=== PATIENT | male | born 1975 | race Caucasian/White ===

== ENCOUNTER 2025-03-12 14:35 | Emergency (ER) | payer OTHER, SELFPAY ==
[2025-03-12] VITALS (14 sets, daily range): BP systolic 163–188; BP diastolic 99–124; PULSE 83; RESP 14; TEMP 36.6; O2SAT 96–100
--- NOTE | ~2025-03-12 | XR_ITS ---
EXAMINATION: XR chest 2V, 03/12/2025 15:00 CDT HISTORY: chest pain COMPARISON: No comparisons available. Technique: 2 views obtained. Findings: The lungs are clear, no effusion. No pneumothorax. Heart is normal size. Mediastinal and hilar contours are within normal limits. Bony thorax no acute abnormality. Impression: No acute cardiopulmonary abnormality. Reviewed, dictated and finalized at location P. Impression: No acute cardiopulmonary abnormality.
--- NOTE | ~2025-03-12 | CT_ITS ---
CTA CHEST CLINICAL HISTORY: d dimer, CP . COMPARISON: Chest x-ray today TECHNIQUE: Helical CTA performed from thoracic inlet to upper abdomen IV contrast information not listed in PACS Coronal, sagittal reformats. Multiplanar MIPS CT images acquired with automatic exposure control for dose reduction DLP: 636 mGy-cm FINDINGS: Pulmonary arteries: No PE. Thoracic Aorta: No dissection or aneurysm. Heart/pericardium: Unremarkable. RV/LV ratio: Normal. Lungs/Pleura: Clear. Tracheobronchial tree: Patent. Nodes: No enlarged nodes. Small mediastinal and left hilar nodes Bones: No acute bony abnormality. Soft tissues: Unremarkable. Visualized upper abdomen: Unremarkable. IMPRESSION: 1. No PE or other acute cardiopulmonary findings. Reviewed, dictated and finalized at location R.
--- NOTE | 2025-03-12 14:40 | ECG_ITS ---
Test Date: 2025-03-12 14:45:04 Measurements Intervals [place] Rate: 74 P: 20 [place]: 152 QRS: 7 QRSD: 76 T: 35 QT: 383 QTc: 426 Interpretive Statements SINUS RHYTHM POSSIBLE LEFT ATRIAL ENLARGEMENT BASELINE ARTIFACT- I, II, III, AVR, AVL, AVF, V1-V6 BORDERLINE ECG No previous ECG available for comparison Electronically Signed On 03-12-2025 15:02:42 CDT by Johnson Valdivia D.O.
[2025-03-12 15:02] LABS: Hematocrit 49.6 % (42.0-52.0); Hemoglobin 17.6 g/dL (14.0-18.0); Immature Granulocyte Percent A 0.3 % (0-0.5); Lymphocytes Absolute Auto 1.49 K/mm3 (0.9-3.2); Mean Corpuscular HGB Conc 35.5 g/dl (32-36); Mean Corpuscular Hemoglobin 31.8 pg (26-34); Mean Corpuscular Volume 89.5 fl (80-100); Nucleated Red Blood Cells Absolute Auto 0.000 K/mm3 (0.0-0.012); Nucleated Red Blood Cells Perc 0.0 % (0.0-0.2); Platelet Count Result 244 k/mm3 (150-375); Red Blood Count 5.54 M/mm3 (4.6-6.20); White Blood Count 7.0 K/mm3 (4.5-10.0)
[2025-03-12 15:12] LABS: Alanine Aminotransferase 43 U/L (6-50); Albumin Level 4.9 g/dL (3.5-5.1); Alkaline Phosphatase 129 U/L (38-126); Anion Gap 11 mmol/L (4-12); Aspartate Amino Transferase 51 U/L (17-59); Bilirubin,Total 2.6 mg/dL (0.2-1.3); Blood Urea Nitrogen 10 mg/dL (9-20); Calcium 9.6 mg/dL (8.4-10.2); Carbon Dioxide 23 mmol/L (22-30); Chloride 103 mmol/L (98-107); Estimated Glomerular Filt Rate 52; Glucose 115 mg/dL (65-110); Lipase 47 U/L (23-300); Potassium 4.1 mmol/L (3.4-5.0); Sodium 137 mmol/L (137-145); Total Protein 8.5 g/dL (6.3-8.2)
[2025-03-12 15:15] LABS: INR 1.0; Prothrombin Time 13.4 Seconds (11.1-14.7)
[2025-03-12 15:16] LABS: Partial Thromboplastin Time 31.7 Seconds (22.3-36.8)
[2025-03-12 15:24] LABS: Troponin I < 0.012 ng/mL (0.000-0.034)
--- NOTE | 2025-03-12 17:51 | ECG_ITS ---
Test Date: 2025-03-12 17:50:19 Measurements Intervals [place] Rate: 60 P: 20 [place]: 161 QRS: 53 QRSD: 85 T: -3 QT: 420 QTc: 420 Interpretive Statements SINUS RHYTHM NONSPECIFIC ST-T WAVE ABNORMALITY- INFERIOR LEADS BASELINE ARTIFACT- I, II, AVR BORDERLINE ECG Compared to ECG 03/12/2025 14:45:04 NO SIGNIFICANT CHANGE Electronically Signed On 03-13-2025 07:51:38 CDT by Johnson Valdivia D.O.
[2025-03-12 18:17] LABS: Troponin I < 0.012 ng/mL (0.000-0.034)
--- NOTE | 2025-03-12 18:56 | ED.GENADULT ---
HPI - General Adult General Chief complaint: Chest Pain <Kevin Tucker MD - Last Filed: 03/13/25 18:00> Stated complaint: chest pain <Kevin Tucker MD - Last Filed: 03/13/25 18:00> Time Seen by Provider: 03/12/25 16:38 <Kevin Tucker MD - Last Filed: 03/13/25 18:00> History of Present Illness HPI narrative: 49-year-old male presents to the emergency department for evaluation for episode of diaphoresis and chest pain started today. Approximately noon patient had onset of chest pressure and nausea vomiting. Patient was recently diagnosed with hypertension and was started on nifedipine last week but patient has not yet started taking this medication. She denies any prior cardiac history. Patient does have a recent negative stress test and echocardiogram. At time of evaluation patient denies any current chest pain but does have some elevated blood pressure. <Kevin Tucker MD - Last Filed: 03/13/25 18:00> Related Data Allergies/adverse reactions: Allergies Allergy/AdvReac Type Severity Reaction Status Date / Time No Known Allergies Allergy Verified 03/12/25 17:33 <Kevin Tucker MD - Last Filed: 03/13/25 18:00> Review of Systems Review of Systems: All systems reviewed & are unremarkable except as noted in HPI and below <Kevin Tucker MD - Last Filed: 03/13/25 18:00> Exam Narrative: APPEARANCE: Well appearing, no pain, no distress, well-nourished. HEAD: normocephalic, atraumatic. EYES: PERRLA/EOMI, conjunctivae clear. NOSE: Normal no drainage EARS:TMS clear with good light reflex. THROAT: Pharynx clear, no exudate. NECK: Supple. No adenopathy, no masses. RESPIRATORY: Airway patent, respirations nonlabored. Clear to auscultation bilaterally, no rales, rhonchi, wheezing. CARDIOVASCULAR: Regular rate and rhythm without murmurs rubs or gallops. ABDOMINAL: Soft, nontender, nondistended, normal bowel sounds MUSCULOSKELETAL: Moves all extremities. Strength/ROM intact, No edema, No calf tenderness. NEURO: Alert. Cranial nerves II through XII intact. Good gait. Good coordination SKIN: Warm, dry. Normal Color <Kevin Tucker MD - Last Filed: 10/09/25 18:00> Course Vital Signs Vital signs: Vital Signs Pulse Oximetry 99 03/12/25 16:54 Temperature 97.8 F 03/12/25 20:26 Pulse Rate 83 03/12/25 20:26 Respiratory Rate 14 03/12/25 20:26 Blood Pressure 163/100 H 03/12/25 20:26 Pulse Oximetry 96 03/12/25 20:26 <Kevin Tucker MD - Last Filed: 03/13/25 18:00> Vital Signs Pulse Oximetry 99 03/12/25 16:54 Temperature 97.8 F 03/12/25 20:26 Pulse Rate 83 03/12/25 20:26 Respiratory Rate 14 03/12/25 20: Blood Pressure 163/100 H 03/12/25 20:26 Pulse Oximetry 96 03/12/25 20:26 <Enid Rainey MD - Last Filed: 03/12/25 21:18> Medical Decision Making MDM Narrative Medical decision making narrative: 49-year-old male presents emergency department for evaluation for elevated blood pressure and chest pressure earlier today with associated nausea and vomiting. At time of evaluation patient reports his symptoms have improved although patient does still have hypertension. Patient is currently afebrile no leukocytosis hemoglobin of 17.6. Patient's INR is 1.0. Patient does have an elevated D-dimer 0.54 and at time of sign-out CTA is pending. Patient's initial troponin was negative. Delta troponin is pending at time of sign-out. Chest x-ray shows no acute cardiopulmonary abnormality. EKG shows normal sinus rhythm with possible left atrial enlargement. No evidence of acute infarction. <Kevin Tucker MD - Last Filed: 03/13/25 18:00> 49-year-old male presents emergency department for evaluation for elevated blood pressure and chest pressure earlier today with associated nausea and vomiting. At time of evaluation patient reports his symptoms have improved although patient does still have hypertension. Patient is currently afebrile no leukocytosis hemoglobin of 17.6. Patient's INR is 1.0. Patient does have an elevated D-dimer 0.54 and at time of sign-out CTA is pending. Patient's initial troponin was negative. Delta troponin is pending at time of sign-out. Chest x-ray shows no acute cardiopulmonary abnormality. EKG shows normal sinus rhythm with possible left atrial enlargement. No evidence of acute infarction. [Brigid] Patient signed out to me at 7:00 p.m Pending a repeat troponin and CTA. Repeat troponin within normal limits CTA also normal. Patient is reassessed at 8:15 p.m.. 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 He believes that when his stomach hurts due to this he gets some radiating pain into his chest. He notes that this sometimes happens when he drinks alcohol and he admits that he had been drinking alcohol last night. Thinks it might be gastritis. Will give patient famotidine, Protonix, cholestyramine, and a GI cocktail and reassess. upon reassessment patient for states that he is feeling better but then states that he feels weird. 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 His last EGD occurred in August with a air conditioning mechanic closer to where he resides. Similarly, he notes that in the past year he had been worked up for chest pain with a stress test and an echo which he reports were negative. He notes that he is still intermittently having some epigastric abdominal pain. Bentyl ordered and patient has not yet received the cholestyramine that had been ordered earlier. His blood pressure has improved with systolic blood pressure in the 140s on my examination in the room. Patient would like to be discharged At this time per the nurse. he is stable. <Enid Rainey MD - Last Filed: 03/12/25 21:18> Vital Signs Vital Signs: Vital Signs Pulse Oximetry 99 03/12/25 16:54 Temperature 97.8 F 03/12/25 20:26 Pulse Rate 83 03/12/25 20:26 Respiratory Rate 14 03/12/25 20:26 Blood Pressure 163/100 H 03/12/25 20:26 Pulse Oximetry 96 03/12/25 20:26 <Kevin Tucker MD - Last Filed: 03/13/25 18:00> Vital Signs Pulse Oximetry 99 03/12/25 16:54 Temperature 97.8 F 03/12/25 20:26 Pulse Rate 83 03/12/25 20:26 Respiratory Rate 14 03/12/25 20:26 Blood Pressure 163/100 H 03/12/25 20:26 Pulse Oximetry 96 03/12/25 20:26 <Enid Rainey MD - Last Filed: 03/12/25 21:18> Lab Data Result diagrams: 03/12/25 14:51 03/12/25 14:51 <Kevin Tucker MD - Last Filed: 03/13/25 18:00> Labs: Lab Results 03/12/25 03/12/25 03/12/25 Range/Units 14:49 14:51 17:47 WBC 7.0 (4.5-10.0) K/mm3 RBC 5.54 (4.6-6.20) M/mm3 Hgb 17.6 (14.0-18.0) g/dL Hct 49.6 (42.0-52.0) % MCV 89.5 (80-100) fl MCH 31.8 (26-34) pg MCHC 35.5 (32-36) g/dl RDW 12.6 (11.5-14.5) % Plt Count 244 (150-375) k/mm3 MPV 10.5 H (7.4-10.4) fl Immature Gran % (Auto) 0.3 (0-0.5) % Neut % (Auto) 69.4 (45.5-73.1) % Lymph % (Auto) 21.3 (18.3-44.2) % [place] % (Auto) 7.4 (2.6-8.5) % Eos % (Auto) 0.9 (0-4.4) % Baso % (Auto) 0.7 (0.2-1.2) % Lymph # (Auto) 1.49 (0.9-3.2) K/mm3 [place] # (Auto) 0.5 (0.1-0.6) K/mm3 Eos # (Auto) 0.1 (0-0.3) K/mm3 Baso # (Auto) 0.1 (0.0-0.1) K/mm3 Abs Immat Gran (auto) 0.02 (0.00-0.031) K/mm3 Absolute Neuts (auto) 4.9 (1.3-6.7) K/mm3 Absolute Nucleated RBC 0.000 (0.0-0.012) K/mm3 Nucleated RBC % 0.0 (0.0-0.2) % PT 13.4 (11.1-14.7) Seconds INR 1.0 APTT 31.7 (22.3-36.8) Seconds D-Dimer 0.54 H (<0.48) ug/mL Sodium 137 (137-145) mmol/L Potassium 4.1 (3.4-5.0) mmol/L Chloride 103 (98-107) mmol/L Carbon Dioxide 23 (22-30) mmol/L Anion Gap 11 (4-12) mmol/L BUN 10 (9-20) mg/dL Creatinine 1.45 H (0.7-1.3) mg/dL Estim Creat Clear Calc Not Reportable Estimated GFR 52 L (59 - ) Glucose 115 H (65-110) mg/dL Calcium 9.6 (8.4-10.2) mg/dL Total Bilirubin 2.6 H (0.2-1.3) mg/dL AST 51 (17-59) U/L ALT 43 (6-50) U/L Alkaline Phosphatase 129 H (38-126) U/L Troponin I < 0.012 < 0.012 (0.000-0.034) ng/mL Total Protein 8.5 H (6.3-8.2) g/dL Albumin 4.9 (3.5-5.1) g/dL Lipase 47 (23-300) U/L <Kevin Tucker MD - Last Filed: 03/13/25 18:00> Lab Results 03/12/25 03/12/25 03/12/25 Range/Units 14:49 14:51 17:47 WBC 7.0 (4.5-10.0) K/mm3 RBC 5.54 (4.6-6.20) M/mm3 Hgb 17.6 (14.0-18.0) g/dL Hct 49.6 (42.0-52.0) % MCV 89.5 (80-100) fl MCH 31.8 (26-34) pg MCHC 35.5 (32-36) g/dl RDW 12.6 (11.5-14.5) % Plt Count 244 (150-375) k/mm3 MPV 10.5 H (7.4-10.4) fl Immature Gran % (Auto) 0.3 (0-0.5) % Neut % (Auto) 69.4 (45.5-73.1) % Lymph % (Auto) 21.3 (18.3-44.2) % [place] % (Auto) 7.4 (2.6-8.5) % Eos % (Auto) 0.9 (0-4.4) % Baso % (Auto) 0.7 (0.2-1.2) % Lymph # (Auto) 1.49 (0.9-3.2) K/mm3 [place] # (Auto) 0.5 (0.1-0.6) K/mm3 Eos # (Auto) 0.1 (0-0.3) K/mm3 Baso # (Auto) 0.1 (0.0-0.1) K/mm3 Abs Immat Gran (auto) 0.02 (0.00-0.031) K/mm3 Absolute Neuts (auto) 4.9 (1.3-6.7) K/mm3 Absolute Nucleated RBC 0.000 (0.0-0.012) K/mm3 Nucleated RBC % 0.0 (0.0-0.2) % PT 13.4 (11.1-14.7) Seconds INR 1.0 APTT 31.7 (22.3-36.8) Seconds D-Dimer 0.54 H (<0.48) ug/mL Sodium 137 (137-145) mmol/L Potassium 4.1 (3.4-5.0) mmol/L Chloride 103 (98-107) mmol/L Carbon Dioxide 23 (22-30) mmol/L Anion Gap 11 (4-12) mmol/L BUN 10 (9-20) mg/dL Creatinine 1.45 H (0.7-1.3) mg/dL Estim Creat Clear Calc Not Reportable Estimated GFR 52 L (59 - ) Glucose 115 H (65-110) mg/dL Calcium 9.6 (8.4-10.2) mg/dL Total Bilirubin 2.6 H (0.2-1.3) mg/dL AST 51 (17-59) U/L ALT 43 (6-50) U/L Alkaline Phosphatase 129 H (38-126) U/L Troponin I < 0.012 < 0.012 (0.000-0.034) ng/mL Total Protein 8.5 H (6.3-8.2) g/dL Albumin 4.9 (3.5-5.1) g/dL Lipase 47 (23-300) U/L <Enid Rainey MD - Last Filed: 03/12/25 21:18> Discharge Plan Discharge Clinical Impression: Chest pain, Epigastric abdominal pain <Kevin Tucker MD - Last Filed: 03/13/25 18:00> Patient Disposition: Home <Kevin Tucker MD - Last Filed: 03/13/25 18:00> Condition: Stable <Kevin Tucker MD - Last Filed: 03/13/25 18:00> Instructions: Antibiotic Form, Chest Pain (ED), Gastritis (DC), Epigastric Pain (ED) <Kevin Tucker MD - Last Filed: 03/13/25 18:00> Additional Instructions: Continue taking your medications as prescribed. 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 Return to the emergency department with any new or worsening symptoms. <Kevin Tucker MD - Last Filed: 03/13/25 18:00> Patient Language: Togolese <Kevin Tucker MD - Last Filed: 03/13/25 18:00> Follow-up/Referrals: UNKNOWN,DOCTOR [Primary Care Provider] <Kevin Tucker MD - Last Filed: 03/13/25 18:00> Stand Alone Forms: Work/School Release IP <Kevin Tucker MD - Last Filed: 03/13/25 18:00> Time of Disposition: 21:11 <Kevin Tucker MD - Last Filed: 03/13/25 18:00> 21:11 <Enid Rainey MD - Last Filed: 03/12/25 21:18>
--- NOTE | 2025-03-12 19:28 | PC.NURSE ---
Pt to CT at this time
[2025-03-12] MEDS: PANTOPRAZOLE SODIUM IV 40 MG VIAL IV PUSH (20:33)
[2025-03-12] MEDS: BELLADONNA ALK/PHENOB ELIX 10 ML, MAG HYDROX/ALUMINUM HYD/SIMETH 30 ML, LIDOCAINE 2% VI... PO (20:34)
[2025-03-12] MEDS: FAMOTIDINE 20 MG/2 ML VIAL IV PUSH (20:34)
[2025-03-12] MEDS: CHOLESTYRAMINE LIGHT 4 GM POWD.PACK PO (21:07)
[2025-03-12] MEDS: DICYCLOMINE HCL 10 MG CAPSULE 20 MG PO (21:27)
== END 2025-03-12 21:33 | disposition home or self-care (01) ==
PROVIDERS: Emergency Medicine; Emergency Provider Student in an Organized Health Care Education/Training Program
DX: R07.89 Other chest pain (principal); R10.13 Epigastric pain; I10 Essential (primary) hypertension; R94.31 Abnormal electrocardiogram [ECG] [EKG]
CPT/HCPCS: 36415; 71046; 71275; 80053; 83690; 84484; 85025; 85380; 85610; 85730; 93005; 96374; 96375; 99284; A9270; J0360; J2470; J2765; Q9967